=== PATIENT | female | born 1980 | race Caucasian/White ===

== ENCOUNTER 2022-12-17 09:34 | Emergency (ER) | payer BC, SELFPAY ==
[2022-12-17 09:48] VITALS: BP 104/61; PULSE 76; RESP 18; TEMP 36.8; O2SAT 97; BMI 23.0
--- NOTE | 2022-12-17 09:51 | ED_ITS ---
HPI - General Adult General Chief complaint: Upper Respiratory Infection Stated complaint: NAUSEA Time Seen by Provider: 12/17/22 09:47 Source: patient Mode of arrival: walk-in Limitations: no limitations History of Present Illness HPI narrative: 42-year-old female presents for nausea and some body aches and she has been able to eat any food. She is worried about being dehydrated. She hasn't checked her temperature at home but thought she might have a fever. No diarrhea. No dysuria or hematuria and she's had this symptom for the past two days. No known ill contacts. Related Data Previous Rx's Medication Instructions Recorded ondansetron 4 mg disintegrating 4 mg PO Q6H PRN nausea and 12/17/22 tablet vomiting #20 tabs Allergies Allergy/AdvReac Type Severity Reaction Status Date / Time No Known Drug Allergies Allergy Verified 12/17/22 09:47 Review of Systems ROS Narrative A ten point review of systems is negative except as noted above. PFSH PFSH Social History Smoking status: Never smoker Exam Narrative Exam Narrative: Nurses note and vital signs reviewed and patient is not hypoxic. General: The patient appears well and in no apparent distress. Patient is res ting comfortably on cart. Skin: Warm, dry, no pallor noted. There is no rash noted. Head: Normocephalic, atraumatic Eye: Normal conjunctiva, no drainage, Ears, Nose, Mouth, and Throat: oral mucosa is moist. Nares patent. . Cardiovascular: Regular Rate and Rhythm Respiratory: Patient is in no distress, no accessory muscle use, lungs are clear to auscultation, no wheezing, rales or rhonchi Back: non-tender GI: no tenderness to palpation, no masses appreciated. No rebound, guarding, or rigidity noted. Musculoskeletal: The patient has no evidence of calf tenderness, no pitting edema, symmetrical pulses noted bilaterally Neurological: A&O, normal speech Psychiatric: Cooperative Constitutional Vital Signs, click to edit/add: Last Vital Signs Temp 98.3 F 12/17/22 09:48 Pulse 70 12/17/22 10:28 Resp 18 12/17/22 10:28 BP 114/64 12/17/22 10:28 Pulse Ox 100 12/17/22 10:28 O2 Del Method Room Air 12/17/22 09:48 Course Vital Signs Vital signs: Vital Signs Temperature 98.3 F 12/17/22 09:48 Pulse Rate 76 12/17/22 09:48 Respiratory Rate 18 12/17/22 09:48 Blood Pressure 104/61 12/17/22 09:48 Pulse Oximetry 97 12/17/22 09:48 Oxygen Delivery Method Room Air 12/17/22 09:48 Temperature 98.3 F 12/17/22 09:48 Pulse Rate 70 12/17/22 10:28 Respiratory Rate 18 12/17/22 10:28 Blood Pressure 114/64 12/17/22 10:28 Pulse Oximetry 100 12/17/22 10:28 Oxygen Delivery Method Room Air 12/17/22 09:48 Medical Decision Making MDM Narrative Medical decision making narrative: blood work is nonspecific. She was given IV fluids and Zofran. She is able to be discharged home with a work note and a prescription for Zofran. She has had a hysterectomy. Treatment diagnosis and follow-up were discussed with the patient. Differential Diagnosis Differential Diagnosis: gastroenteritis, food poisoning, dehydration Lab Data Lab results reviewed: Yes I reviewed the patient's lab results Labs: Lab Results 12/17/22 Range/Units 09:58 WBC 5.8 (4.0-11.0) 10^3/uL RBC 4.40 (4.20-5.40) 10^6/uL Hgb 12.9 (12.0-16.0) g/dL Hct 39.2 (36.0-48.0) % MCV 89.1 (81.0-99.0) fL MCH 29.3 (26.7-34.0) pg MCHC 32.9 (29.9-35.2) g/dL RDW 12.7 (11.0-15.0) % Plt Count 236 (150-450) 10^3/uL MPV 8.8 L (9.5-13.5) fL Neut % (Auto) 65.0 (43.0-75.0) % Lymph % (Auto) 22.6 (20.5-60.0) % Evangeline % (Auto) 12.0 (1.7-12.0) % Eos % (Auto) 0.0 L (0.9-7.0) % Baso % (Auto) 0.2 (0.2-2.0) % Neut # (Auto) 3.7 (1.4-6.5) 10^3/uL Lymph # (Auto) 1.3 (1.2-3.8) 10^3/uL Evangeline # (Auto) 0.7 (0.3-0.8) 10^3/uL Eos # (Auto) 0.0 (0.0-0.7) 10^3/uL Baso # (Auto) 0.0 (0.0-0.1) 10^3/uL Abs Immat Gran (auto) 0.01 (0.00-0.03) 10^3/uL Imm/Tot Granulo (auto) 0.2 (0.0-0.5) % Sodium 135 L (136-145) mmol/L Potassium 3.5 (3.5-5.1) mmol/L Chloride 99 (98-107) mmol/L Carbon Dioxide 25.7 (21.0-32.0) mmol/L Anion Gap 13.8 BUN 13.0 (7.0-18.0) mg/dL Creatinine 1.08 H (0.55-1.02) mg/dL Est GFR ( Amer) >60 (>=60) Est GFR (Non-Af Amer) 56 L (>=60) BUN/Creatinine Ratio 12.0 Glucose 88 (74-106) mg/dL Calcium 8.4 L (8.5-10.1) mg/dL Discharge Plan Discharge Chief Complaint: Upper Respiratory Infection Clinical Impression: Gastroenteritis Patient Disposition: Home, Self-Care Time of Disposition Decision: 11:01 Condition: Good Mode of Transportation: Private Vehicle Prescriptions / Home Meds: New ondansetron 4 mg tablet,disintegrating 4 mg PO Q6H PRN (Reason: nausea and vomiting) Qty: 20 0RF Instructions: Gastroenteritis (ED), Acute Nausea and Vomiting (ED) Stand Alone Forms: Portal Instructions Referrals: VAN VASQUEZ [Primary Care Provider] - 1 week
[2022-12-17] MEDS: ONDANSETRON PF 4 MG/2 ML VIAL IV (10:00)
[2022-12-17] MEDS: 0.9 % SODIUM CHLORIDE 1,000 ML 1000 ML IV (10:00)
[2022-12-17 10:07] LABS: Basophils Percent Auto 0.2 % (0.2-2.0); Hematocrit 39.2 % (36.0-48.0); Hemoglobin 12.9 g/dL (12.0-16.0); Immature Granulocytes Abs Auto 0.01 10^3/uL (0.00-0.03); Immature Granulocytes Pct Auto 0.2 % (0.0-0.5); Lymphocytes Absolute Auto 1.3 10^3/uL (1.2-3.8); Lymphocytes Percent Auto 22.6 % (20.5-60.0); Mean Corpuscular HGB Conc 32.9 g/dL (29.9-35.2); Mean Corpuscular Hemoglobin 29.3 pg (26.7-34.0); Mean Corpuscular Volume 89.1 fL (81.0-99.0); Mean Platelet Volume 8.8 fL (9.5-13.5); Monocytes Absolute Auto 0.7 10^3/uL (0.3-0.8); Neutrophils Absolute Auto 3.7 10^3/uL (1.4-6.5); Platelet Count 236 10^3/uL (150-450); Red Cell Distribution Width 12.7 % (11.0-15.0); White Blood Count 5.8 10^3/uL (4.0-11.0)
[2022-12-17 10:18] LABS: Anion Gap 13.8; Calcium 8.4 mg/dL (8.5-10.1); Carbon Dioxide 25.7 mmol/L (21.0-32.0); Chloride 99 mmol/L (98-107); Estimated GFR (African America >60 (>=60); Estimated GFR (Non-African Ame 56 (>=60); Glucose 88 mg/dL (74-106); Potassium 3.5 mmol/L (3.5-5.1); Sodium 135 mmol/L (136-145)
[2022-12-17 10:28] VITALS: BP 114/64; PULSE 70; RESP 18; O2SAT 100
== END 2022-12-17 11:15 | disposition home or self-care (01) ==
PROVIDERS: Emergency Provider Emergency Medicine; PCP Internal Medicine
DX: K52.9 Noninfective gastroenteritis and colitis, unspecified (principal); Z90.710 Acquired absence of both cervix and uterus
CPT/HCPCS: 36415; 80048; 85025; 96374; 99284